=== PATIENT | female | born 1990 | race Caucasian/White ===

== ENCOUNTER 2016-08-21 11:33 | Emergency (ER) | payer BC ==
[2016-08-21 11:50] VITALS: BP 122/73
--- NOTE | 2016-08-21 11:52 | ED Physician Documentation ---
Female Urogenital Problems - HISTORIAN Historian: patient - HPI Stated Complaint: bleeding with intercourse Chief Complaint: Female Urogenital Problems Onset: days ago Severity: mild Further Comments: yes (LNMP Jul 13, and was normal. Has done 4 home pregnacy tests and they have been positive. First one was done about 2 weeks ago. Last pregnance test was 5 days ago. Has been having some bleeding with intercourse. Is having some cramping to the lower abdominal area. No urinary problems noted.) - Vaginal Bleeding Sexual History: active Contraceptive: none - Associated Symptoms Urinary Symptoms: none Discharge: denies: vaginal discharge - ROS CONST: none. denies: fever, chills - PAST HX Past History: none Other History: none Surgeries/Procedures: none Allergies/Adverse Reactions: Allergies Allergy/AdvReac Type Severity Reaction Status Date / Time clindamycin Allergy Verified 08/21/16 11:46 Home Medications: Ambulatory Orders Medication Instructions Recorded NK [NK] 08/21/16 - SOCIAL HX Smoking History: non-smoker Alcohol Use: none Drug Use: none - FAMILY HX Family History: none - VITAL SIGNS Vital Signs: Vital Signs Temp Pulse Resp BP Pulse Ox 87 16 122/73 98 08/21/16 11:40 08/21/16 11:40 08/21/16 11:40 08/21/16 11:40 - REVIEWED ASSESSMENTS Nursing Assessment Reviewed: Yes Vitals Reviewed: Yes Female Urogenital Problems - EXAM General Appearance: no acute distress, alert Respiratory: no resp. distress, breath sounds nml. No: wheezes, rales, rhonchi CVS: reg rate & rhythm, heart sounds normal, equal pulses, no murmur Abdomen: no organomegaly, no distention, nml bowel sounds, tenderness (midl diffuse), McBurney's point tender, other (no guarding or rebound tenderness noted. ) Pelvic: external exam nml, speculum exam nml, enlarged uterus. No: vaginal discharge, active bleeding, blood in vaginal vault, blood clots in vault, cerv.motion tenderness, cervical dilation, adnexal tenderness (R), adnexal tenderness (L) Back: non-tender. No: CVA tenderness Skin: color nml, no rash, warm,dry Neuro: oriented X3, CN's nml as tested, motor nml, sensation nml Discharge Clincal Impression: Abnormal vaginal bleeding Referrals: Primary Doctor,No [Primary Care Provider] - 2 Days Additional Instructions: Try to get established with an oil distributor tender about further obstetrical care. Start taking vitamin once a day. Watch for any fever or chills. When having intercourse try positions where your partner may not be thrusting so deep. If you continue to have some problems to follow-up with your primary care provider. Home Medications: Ambulatory Orders NK [NK] 08/21/16 Disposition: 01 HOME, SELF-CARE Decision to Admit: NO Date of Decison to Admit: 08/21/16 Decision Time: 12:18
[2016-08-21 16:10] LABS: APPEARANCE,URINE CLEAR (CLEAR); COLOR,URINE YELLOW (YELLOW)
[2016-08-21 16:11] LABS: OCCULT BLOOD,URINE TRACE-INTACT (NEGATIVE)
== END 2016-08-21 12:35 | disposition home or self-care (01) ==
LOC: ED 11:33
DX: O20.9 Hemorrhage in early pregnancy, unspecified (principal)
CPT/HCPCS: 81002; 81025; 99283

== ENCOUNTER 2017-10-02 09:52 | Emergency (ER) | payer OTHER ==
[2017-10-02 10:55] LABS: BASOPHILS % 0.1 (0.0-1.5); MEAN CORPUSCULAR HEMOGLOBIN 28.5 pg (28.0-34.0); MEAN CORPUSCULAR VOLUME 89.9 fl (80.0-100.0); MONOCYTES % 5.3 % (0.0-11.0); NEUTROPHILS # 4.2 # k/uL (1.4-7.7)
[2017-10-02 11:15] LABS: eGFR (African) > 60; eGFR (Non-African) > 60
[2017-10-02 11:16] VITALS: BP 110/73
--- NOTE | 2017-10-02 11:46 | ED Physician Documentation ---
General Adult - HISTORIAN Historian: patient - HPI Stated Complaint: L swollen neck Chief Complaint: General Adult Further Comments: yes (27 year old female patient presents with complaints of sore throat and left anterior cervical lymph node pain and swelling. Patient reports node has been swollen for 2-3 weeks. Started after "a cold".) - ROS CONST: recent illness (cold) EYES/ENT: none CVS/RESP: none GI/: none MS/SKIN/LYMPH: none NEURO/PSYCH: denies: headache, fainting, dizziness, tingling, numbness, difficulty walking, difficulty with speech, anxiety, depression, other - PAST HX Past History: none Allergies/Adverse Reactions: Allergies Allergy/AdvReac Type Severity Reaction Status Date / Time clindamycin Allergy Verified 10/02/17 11:18 - SOCIAL HX Smoking History: non-smoker - FAMILY HX Family History: No - VITAL SIGNS Vital Signs: Vital Signs Temp Pulse Resp BP Pulse Ox 98.1 F 93 H 16 110/73 98 10/02/17 11:07 10/02/17 11:07 10/02/17 11:07 10/02/17 11:07 10/02/17 11:07 - REVIEWED ASSESSMENTS Nursing Assessment Reviewed: Yes Vitals Reviewed: Yes Progress - Progress Progress: Strep and mono - negative. Encouraged patient to make an appointment for further evaluation with PCP if node remained swollen and tender to touch. Verbalized understanding. ED Results Lab/Radiology - Lab Results Lab Results: Lab Results 10/02/17 10/02/17 10/02/17 10:45 10:45 10:45 WBC 6.00 K/ul K/ul (4.00-12.00) RBC 4.90 M/ul M/ul (3.90-5.20) Hgb 14.0 g/dL g/dL (12.0-16.0) Hct 44.1 % % (34.5-46.5) MCV 89.9 fl fl (80.0-100.0) MCH 28.5 pg pg (28.0-34.0) MCHC 31.7 g/dL g/dL (30.0-36.0) RDW 13.3 % % (11.3-14.3) Plt Count 296 K/mm3 K/mm3 (130-400) Neut % (Auto) 70.1 % % (39.0-79.0) Lymph % (Auto) 21.6 % % (16.0-50.0) [place] % (Auto) 5.3 % % (0.0-11.0) Eos % (Auto) 1.0 % % (0.0-6.8) Baso % (Auto) 0.1 (0.0-1.5) Neut # (Auto) 4.2 # k/uL # k/uL (1.4-7.7) Lymph # (Auto) 1.3 # k/uL # k/uL (0.6-4.0) [place] # (Auto) 0.3 # k/uL # k/uL (0.0-0.9) Eos # (Auto) 0.1 # k/uL # k/uL (0.0-0.6) Baso # (Auto) 0.0 # k/uL # k/uL (0.0-0.5) Reactive Lymphs % 1.9 % % (0.0-5.0) Reactive Lymphs # 0.1 # k/uL # k/uL (0.0-0.8) Sodium 141 mmol/L mmol/L (136-145) Potassium 4.4 mmol/L mmol/L (3.5-5.1) Chloride 105 mmol/L mmol/L (98-107) Carbon Dioxide 25 mmol/L mmol/L (22-30) BUN 9 mg/dL mg/dL (7-17) Creatinine 0.70 mg/dL mg/dL (0.52-1.04) Est GFR ( Amer) > 60 (60 - ) Est GFR (Non-Af Amer) > 60 (60 - ) Glucose 89 mg/dL mg/dL (74-106) Calcium 8.9 mg/dL mg/dL (8.4-10.2) Total Bilirubin 0.6 mg/dL mg/dL (0.2-1.3) AST 22 U/L U/L (15-46) ALT 34 U/L U/L (13-69) Alkaline Phosphatase 70 U/L U/L (38-126) Total Protein 8.6 g/dL H g/dL (6.3-8.2) Albumin 4.4 g/dL g/dL (3.5-5.0) Monoscreen Negative (NEGATIVE) Group A Strep Screen Pending - Orders Orders: ED Orders Category Date Time Status CBC/PLATELET/DIFF Stat Lab 10/02/17 10:45 Completed CMP Stat Lab 10/02/17 10:45 Completed GRP A STREP SCREEN Stat Lab 10/02/17 10:45 Results MONOTEST Stat Lab 10/02/17 10:45 Results General Adult Physical Exam - PHYSICAL EXAM GENERAL APPEARANCE: [id number] N EENT: eye inspection normal, ENT inspection normal, pharynx normal, no signs of dehydration, TU, no nystagmus, TM's nml NECK: normal inspection, thyroid normal, other (left anterior cervical lymph node 2 cm; mobile; tender to palpation) RESPIRATORY: no resp distress, chest non-tender, breath sounds normal CVS: reg rate & rhythm, heart sounds normal, equal pulses, no murmur, no gallop , PMI nml, no JVD, no friction rub, 24 ABDOMEN: soft, no organomegaly, normal bowel sounds, no abdominal bruit, no distension SKIN: normal color, warm/dry, NR, INT, PAL, DR EXTREMITIES: non-tender, normal range of motion, no evidence of injury, no edema , J, [employer] NEUR[employer]: oriented X3, CN's nml as tested, motor nml, sensation nml, mood/affect nml Discharge Clincal Impression: Lymph node enlargement Referrals: Primary Doctor,No [Primary Care Provider] - 2 Days Additional Instructions: Tylenol or ibuprofen as needed for discomfort. If the left anterior node continues to be swollen and tender for 10-14 days, follow up with your primary care doctor for further evaluation Condition: Stable Disposition: 01 HOME, SELF-CARE Decision to Admit: NO Decision Time: 11:46
== END 2017-10-02 11:50 | disposition home or self-care (01) ==
LOC: ED 09:52
DX: R59.9 Enlarged lymph nodes, unspecified (principal)
CPT/HCPCS: 80053; 85025; 86308; 87070; 87880; 99283